=== PATIENT | female | born 1930 | race African-American/Black ===

== ENCOUNTER 2018-06-24 16:33 | Inpatient (IN) | payer MEDICARE, BC ==
[~2018-06-24] VITALS: Ht 152.4 cm; Wt 61.2 kg
[2018-06-24] MEDS ORDERED: LISI-604 MT (17:03)
[2018-06-24] MEDS ORDERED: ASPI-1158 MT (17:03)
[2018-06-24] MEDS ORDERED: FERR325T6 MT (17:03)
[2018-06-24] MEDS ORDERED: MULT-904 PO (17:03)
[2018-06-24] MEDS ORDERED: AMLO5TAB88 PO (17:03)
[2018-06-24 18:24] LABS: BASOPHILS % 0.4 % (0.0-2.0); EOSINOPHILS % 2.1 % (0.0-5.0); HEMATOCRIT. 24.5 % (36.0-48.0); HEMOGLOBIN. 8.1 g/dL (12.0-16.0); MEAN CORPUSCULAR HEMOGLOBIN 27.5 pg (28.0-32.0); MEAN CORPUSCULAR VOLUME 83.7 fL (81.0-99.0); MEAN PLATELET VOLUME 8.9 fl (7.4-10.4); MONOCYTES % 6.3 % (2.0-8.0); NEUTROPHILS % 77.2 % (40.0-76.0); PLATELET 233 x1000/uL (130-400); RED BLOOD CELL COUNT 2.92 mill/uL (4.2-5.4); RED CELL DISTRIBUTION WIDTH 15.7 % (11.6-14.6)
[2018-06-24 18:26] LABS: CHLORIDE 115 mEq/L (98-107)
[2018-06-24] MEDS ORDERED: POTASSIUM CHLORIDE 20MEQ TABLET SR PO NR (20:00)
[2018-06-24] MEDS ORDERED: IPRATROPIUM/ALBUTEROL 0.5-3(2.5)MG/3ML NEB INH PRN (20:00)
[2018-06-24] MEDS ORDERED: ONDANSETRON 4MG ODT PO PRN (20:00)
[2018-06-24] MEDS ORDERED: AMLODIPINE 5MG TABLET PO NR (20:00)
[2018-06-24] MEDS ORDERED: ACETAMINOPHEN 650MG/20.3ML UDC GT PRN (20:00)
[2018-06-24] MEDS ORDERED: SODIUM CHLORIDE 0.45% 1,000 ML IV SCH (22:00)
[2018-06-24 22:10] VITALS: BP 175/70
[2018-06-25] VITALS (7 sets, daily range): BP systolic 123–186; BP diastolic 67–82
[2018-06-25] MEDS ORDERED: MVI, ADULT NO.1 10 ML, FOLIC ACID 1 MG, THIAMINE HCL 100 MG in SODIUM CHLORIDE 0.9% 1,0... IV NR ×4
[2018-06-25] MEDS: CLONIDINE 0.1MG TABLET PO PRN (00:27)
[2018-06-25 06:42] LABS: BASOPHILS % 0.4 % (0.0-2.0); EOSINOPHILS % 2.3 % (0.0-5.0); HEMATOCRIT. 24.2 % (36.0-48.0); HEMOGLOBIN. 7.9 g/dL (12.0-16.0); LYMPHOCYTES % 18.2 % (20.0-50.0); MEAN CORPUSCULAR HEMOGLOBIN 27.3 pg (28.0-32.0); MEAN CORPUSCULAR VOLUME 83.5 fL (81.0-99.0); MEAN PLATELET VOLUME 8.8 fl (7.4-10.4); NEUTROPHILS % 74.1 % (40.0-76.0); PLATELET 215 x1000/uL (130-400); RED CELL DISTRIBUTION WIDTH 15.5 % (11.6-14.6)
[2018-06-25] MEDS: OMEPRAZOLE 20MG CAPSULE EXTENDED RELEASE PO SCH (06:43)
[2018-06-25 06:54] LABS: CHLORIDE 116 mEq/L (98-107)
[2018-06-25 07:00] LABS: PHOSPHORUS 3.4 mg/dL (2.5-4.9)
[2018-06-25 07:01] LABS: LDL CHOLESTEROL 157 mg/dL (5-100)
[2018-06-25 07:02] LABS: HDL CHOLESTEROL 93 mg/dL (40-59); TOTAL IRON BINDING CAPACITY 226 ug/dL (250-450)
[2018-06-25 07:04] LABS: CREATINE KINASE MB FRACTION 0.7 ng/mL (0.5-3.6)
[2018-06-25 07:18] LABS: VITAMIN B12 SERUM 1008 pg/mL (211-911)
[2018-06-25] MEDS ORDERED: SODIUM CHLORIDE 0.45% 1,000 ML IV SCH (08:00)
[2018-06-25] MEDS: ASPIRIN 81MG EC TABLET PO SCH (09:36)
[2018-06-25] MEDS: AMLODIPINE 5MG TABLET PO SCH (09:36)
[2018-06-25] MEDS: POTASSIUM CHLORIDE 20MEQ TABLET SR PO SCH (09:36)
[2018-06-25] MEDS: ENOXAPARIN 30MG/0.3ML SYR SUBCUT SCH (09:36)
[2018-06-25] MEDS: DEXT 5% WATER + KCL 20MEQ/L 1,000 ML IV SCH (12:54)
[2018-06-25] MEDS: FOLIC ACID/VITAMIN B COMP W-C TABLET PO SCH (12:54)
[2018-06-25] MEDS: FERROUS SULFATE 325MG TABLET PO SCH (18:09)
[2018-06-25] MEDS: ATORVASTATIN CALCIUM 10MG TABLET PO SCH (20:52)
[2018-06-25 21:55] LABS: HEMATOCRIT 29.4 % (36.0-48.0); HEMOGLOBIN 9.6 g/dL (12.0-16.0)
[2018-06-26] VITALS (7 sets, daily range): BP systolic 142–198; BP diastolic 68–82
[2018-06-26] MEDS ORDERED: DEXTROSE 50% WATER 50ML SYRINGE IV PRN (01:15)
[2018-06-26 03:10] LABS: CLARITY URINE TURBID (CLEAR); KETONES URINE TRACE (NEGATIVE); LEUKOCYTE ESTERASE URINE 3+ (NEGATIVE); NITRITE URINE NEGATIVE (NEGATIVE); OCCULT BLOOD URINE 3+ (NEGATIVE); PROTEIN URINE 3+ (NEGATIVE); SPECIFIC GRAVITY URINE 1.017 (1.005-1.030); UROBILINOGEN URINE 0.2 E.U./dL (0.2-1.0)
[2018-06-26 03:14] LABS: COLOR URINE BLOODY (YELLOW)
[2018-06-26] MEDS: CLONIDINE 0.1MG TABLET PO PRN (04:39)
[2018-06-26] MEDS: DEXT 5% WATER + KCL 20MEQ/L 1,000 ML IV SCH ×3 (04:39→18:00)
[2018-06-26] MEDS: BLOOD SUGAR DIAGNOSTIC STRIP TEST SCH ×4 (06:08→21:03)
[2018-06-26] MEDS: OMEPRAZOLE 20MG CAPSULE EXTENDED RELEASE PO SCH (06:08)
[2018-06-26 06:20] LABS: BASOPHILS % 0.6 % (0.0-2.0); EOSINOPHILS % 2.6 % (0.0-5.0); HEMOGLOBIN. 8.9 g/dL (12.0-16.0); LYMPHOCYTES % 16.6 % (20.0-50.0); MEAN CORPUSCULAR HEMOGLOBIN 27.4 pg (28.0-32.0); MEAN CORPUSCULAR VOLUME 83.4 fL (81.0-99.0); MEAN PLATELET VOLUME 9.1 fl (7.4-10.4); NEUTROPHILS % 74.2 % (40.0-76.0); PLATELET 225 x1000/uL (130-400); RED BLOOD CELL COUNT 3.23 mill/uL (4.2-5.4); RED CELL DISTRIBUTION WIDTH 15.3 % (11.6-14.6)
[2018-06-26 06:57] LABS: FOLIC ACID (FOLATE) SERUM > 20.00 ng/mL (>5.38)
[2018-06-26 07:01] LABS: HEPATITIS B SURFACE ANTIGEN NEGATIVE
[2018-06-26 07:05] LABS: FERRITIN 340 ng/mL (10-291)
[2018-06-26] MEDS: INSULIN LISPRO 100 UNITS/ML SUBCUT SCH ×4 (07:50→21:00)
[2018-06-26] MEDS: AMLODIPINE 5MG TABLET PO SCH (08:02)
[2018-06-26] MEDS: FOLIC ACID/VITAMIN B COMP W-C TABLET PO SCH (08:02)
[2018-06-26] MEDS: ASPIRIN 81MG EC TABLET PO SCH (08:03)
[2018-06-26] MEDS: FERROUS SULFATE 325MG TABLET PO SCH ×2 (08:03→18:28)
[2018-06-26] MEDS: DOCUSATE SODIUM 250MG CAPSULE PO SCH (08:03)
[2018-06-26] MEDS: POTASSIUM CHLORIDE 20MEQ TABLET SR PO SCH (08:03)
[2018-06-26] MEDS: HYDRALAZINE HCL 50MG TABLET PO SCH ×3 (08:03→21:04)
[2018-06-26] MEDS: ENOXAPARIN 30MG/0.3ML SYR SUBCUT SCH (08:05)
[2018-06-26] MEDS: NYSTATIN POWDER 15GM TOP SCH (18:58)
[2018-06-26] MEDS: ATORVASTATIN CALCIUM 10MG TABLET PO SCH (21:04)
[2018-06-27] VITALS (8 sets, daily range): BP systolic 104–199; BP diastolic 43–81
[2018-06-27] MEDS: CLONIDINE 0.1MG TABLET PO PRN (01:30)
[2018-06-27] MEDS: DEXT 5% WATER + KCL 20MEQ/L 1,000 ML IV SCH ×3 (04:07→23:02)
[2018-06-27] MEDS: HYDRALAZINE HCL 50MG TABLET PO SCH ×2 (05:36→15:04)
[2018-06-27] MEDS: BLOOD SUGAR DIAGNOSTIC STRIP TEST SCH ×4 (06:11→21:00)
[2018-06-27] MEDS: OMEPRAZOLE 20MG CAPSULE EXTENDED RELEASE PO SCH (06:19)
[2018-06-27 06:58] LABS: BASOPHILS % 0.7 % (0.0-2.0); EOSINOPHILS % 3.5 % (0.0-5.0); HEMATOCRIT. 26.2 % (36.0-48.0); HEMOGLOBIN. 8.6 g/dL (12.0-16.0); LYMPHOCYTES % 17.3 % (20.0-50.0); MEAN CORPUSCULAR HEMOGLOBIN 27.1 pg (28.0-32.0); MEAN CORPUSCULAR VOLUME 82.3 fL (81.0-99.0); MEAN PLATELET VOLUME 8.8 fl (7.4-10.4); MONOCYTES % 5.3 % (2.0-8.0); NEUTROPHILS % 73.2 % (40.0-76.0); PLATELET 238 x1000/uL (130-400); RED BLOOD CELL COUNT 3.18 mill/uL (4.2-5.4); RED CELL DISTRIBUTION WIDTH 15.4 % (11.6-14.6)
[2018-06-27] MEDS: INSULIN LISPRO 100 UNITS/ML SUBCUT SCH ×4 (07:50→21:00)
[2018-06-27 07:52] LABS: PHOSPHORUS 3.2 mg/dL (2.5-4.9)
[2018-06-27] MEDS: POTASSIUM CHLORIDE 20MEQ TABLET SR PO SCH (09:17)
[2018-06-27] MEDS: FOLIC ACID/VITAMIN B COMP W-C TABLET PO SCH (09:17)
[2018-06-27] MEDS: ASPIRIN 81MG EC TABLET PO SCH (09:17)
[2018-06-27] MEDS: FERROUS SULFATE 325MG TABLET PO SCH ×2 (09:17→17:35)
[2018-06-27] MEDS: ENOXAPARIN 30MG/0.3ML SYR SUBCUT SCH (09:18)
[2018-06-27] MEDS: AMLODIPINE 5MG TABLET PO SCH ×2 (09:18→21:00)
[2018-06-27] MEDS: DOCUSATE SODIUM 250MG CAPSULE PO SCH (09:18)
[2018-06-27] MEDS: NYSTATIN POWDER 15GM TOP SCH ×2 (09:19→17:35)
[2018-06-27] MEDS ORDERED: CLONIDINE 0.2MG TABLET PO PRN ×2 (17:00)
[2018-06-27] MEDS: HYDRALAZINE HCL 100MG TABLET PO SCH (21:13)
[2018-06-27] MEDS: ATORVASTATIN CALCIUM 10MG TABLET PO SCH (21:37)
[2018-06-28 00:02] VITALS: BP 129/57
[2018-06-28 04:00] VITALS: BP 136/60
[2018-06-28] MEDS: OMEPRAZOLE 20MG CAPSULE EXTENDED RELEASE PO SCH (05:30)
[2018-06-28] MEDS: HYDRALAZINE HCL 100MG TABLET PO SCH ×3 (05:30→22:20)
[2018-06-28] MEDS: BLOOD SUGAR DIAGNOSTIC STRIP TEST SCH ×4 (07:20→21:30)
[2018-06-28] MEDS: INSULIN LISPRO 100 UNITS/ML SUBCUT SCH ×4 (07:50→21:35)
[2018-06-28 08:00] VITALS: BP 111/55
[2018-06-28] MEDS: AMLODIPINE 5MG TABLET PO SCH ×2 (09:00→22:19)
[2018-06-28] MEDS: DOCUSATE SODIUM 250MG CAPSULE PO SCH (09:05)
[2018-06-28] MEDS: FERROUS SULFATE 325MG TABLET PO SCH ×2 (09:05→17:18)
[2018-06-28] MEDS: NYSTATIN POWDER 15GM TOP SCH ×2 (09:05→17:19)
[2018-06-28] MEDS: POTASSIUM CHLORIDE 20MEQ TABLET SR PO SCH (09:05)
[2018-06-28] MEDS: FOLIC ACID/VITAMIN B COMP W-C TABLET PO SCH (09:05)
[2018-06-28] MEDS: ASPIRIN 81MG EC TABLET PO SCH (09:05)
[2018-06-28] MEDS: ENOXAPARIN 30MG/0.3ML SYR SUBCUT SCH (09:07)
[2018-06-28 09:29] LABS: BASOPHILS % 0.6 % (0.0-2.0); EOSINOPHILS % 1.9 % (0.0-5.0); HEMATOCRIT. 26.3 % (36.0-48.0); HEMOGLOBIN. 8.9 g/dL (12.0-16.0); LYMPHOCYTES % 10.8 % (20.0-50.0); MEAN CORPUSCULAR HEMOGLOBIN 27.5 pg (28.0-32.0); MEAN CORPUSCULAR VOLUME 81.6 fL (81.0-99.0); MEAN PLATELET VOLUME 9.3 fl (7.4-10.4); MONOCYTES % 7.2 % (2.0-8.0); NEUTROPHILS % 79.5 % (40.0-76.0); PLATELET 270 x1000/uL (130-400); RED BLOOD CELL COUNT 3.22 mill/uL (4.2-5.4); RED CELL DISTRIBUTION WIDTH 15.3 % (11.6-14.6)
[2018-06-28 09:32] LABS: CHLORIDE 106 mEq/L (98-107)
[2018-06-28 09:43] LABS: CREATINE KINASE 67 IU/L (26-192)
[2018-06-28 09:47] LABS: CREATINE KINASE MB FRACTION 1.2 ng/mL (0.5-3.6)
[2018-06-28] MEDS: DEXT 5% WATER + KCL 20MEQ/L 1,000 ML IV SCH (10:03)
[2018-06-28] MEDS ORDERED: DEXT 5%/0.45% NACL KCL 10MEQ/L 1,000 ML IV SCH (11:00)
[2018-06-28] MEDS: DEXT 5%/0.45% NACL 1000ML 1,000 ML IV SCH (11:16)
[2018-06-28 12:00] VITALS: BP 154/69
[2018-06-28 16:00] VITALS: BP 122/57
[2018-06-28 19:06] LABS: ANTI-NUCLEAR ANTIBODIES DIRECT Negative (Negative)
[2018-06-28 20:00] VITALS: BP 153/66
[2018-06-28] MEDS: ATORVASTATIN CALCIUM 10MG TABLET PO SCH (22:18)
[2018-06-28] MEDS: METOPROLOL TARTRATE 25MG TABLET PO SCH (22:19)
[2018-06-29] VITALS: BP 129/54
[2018-06-29] MEDS: DEXT 5%/0.45% NACL 1000ML 1,000 ML IV SCH ×2 (00:25→13:40)
[2018-06-29 04:00] VITALS: BP 138/68
[2018-06-29] MEDS: HYDRALAZINE HCL 100MG TABLET PO SCH ×4 (06:21→21:43)
[2018-06-29 07:24] LABS: BASOPHILS % 0.6 % (0.0-2.0); EOSINOPHILS % 2.4 % (0.0-5.0); HEMATOCRIT. 24.4 % (36.0-48.0); HEMOGLOBIN. 8.1 g/dL (12.0-16.0); MEAN CORPUSCULAR HEMOGLOBIN 27.4 pg (28.0-32.0); MEAN CORPUSCULAR VOLUME 82.5 fL (81.0-99.0); MEAN PLATELET VOLUME 9.3 fl (7.4-10.4); PLATELET 255 x1000/uL (130-400); RED BLOOD CELL COUNT 2.95 mill/uL (4.2-5.4); RED CELL DISTRIBUTION WIDTH 15.5 % (11.6-14.6)
[2018-06-29 07:30] LABS: PARTIAL THROMBOPLASTIN TIME 23.1 sec (23.4-31.0); PROTHROMBIN TIME 10.2 sec (9.4-11.6)
[2018-06-29] MEDS: BLOOD SUGAR DIAGNOSTIC STRIP TEST SCH ×4 (07:40→21:44)
[2018-06-29] MEDS: INSULIN LISPRO 100 UNITS/ML SUBCUT SCH ×4 (07:50→21:00)
[2018-06-29] MEDS: FERROUS SULFATE 325MG TABLET PO SCH ×2 (08:50→17:50)
[2018-06-29] MEDS: DOCUSATE SODIUM 250MG CAPSULE PO SCH (08:51)
[2018-06-29] MEDS: ASPIRIN 81MG EC TABLET PO SCH (08:51)
[2018-06-29] MEDS: PANTOPRAZOLE SODIUM 40 MG/VIAL IV SCH (08:51)
[2018-06-29] MEDS: FOLIC ACID/VITAMIN B COMP W-C TABLET PO SCH (08:51)
[2018-06-29] MEDS: AMLODIPINE 5MG TABLET PO SCH ×3 (08:51→21:43)
[2018-06-29] MEDS: METOPROLOL TARTRATE 25MG TABLET PO SCH ×3 (08:51→21:44)
[2018-06-29] MEDS: ENOXAPARIN 30MG/0.3ML SYR SUBCUT SCH (08:52)
[2018-06-29] MEDS ORDERED: FAMOTIDINE 20MG TABLET PO SCH (09:00)
[2018-06-29 09:12] VITALS: BP 180/74
[2018-06-29] MEDS ORDERED: LABETALOL 5MG/ML SYR 20 MG/4 ML SYRINGE IV SCH (11:00)
[2018-06-29 12:51] VITALS: BP 169/65
[2018-06-29] MEDS ORDERED: SODIUM CHLORIDE 0.9% 10ML VIAL ONE (13:40)
[2018-06-29] MEDS ORDERED: HYDRALAZINE 20MG/ML VIAL IV PRN (14:45)
[2018-06-29] MEDS: NYSTATIN POWDER 15GM TOP SCH (15:33)
[2018-06-29] MEDS ORDERED: METOCLOPRAMIDE HCL 10MG/2ML VIAL IV NR (16:30)
[2018-06-29 16:48] VITALS: BP 146/63
[2018-06-29] MEDS ORDERED: FENTANYL CITRATE/PF 50MCG/ML 2ML VIAL ONE (19:13)
[2018-06-29] MEDS ORDERED: MIDAZOLAM HCL 5 MG/5 ML VIAL ONE (19:13)
[2018-06-29] MEDS ORDERED: FENTANYL CITRATE/PF 50MCG/ML 2ML VIAL IV ONE (19:24)
[2018-06-29] MEDS ORDERED: MIDAZOLAM HCL 5 MG/5 ML VIAL IV ONE (19:25)
[2018-06-29 21:00] VITALS: BP 140/70
[2018-06-29] MEDS: ATORVASTATIN CALCIUM 10MG TABLET PO SCH (21:43)
[2018-06-30] VITALS (11 sets, daily range): BP systolic 126–145; BP diastolic 52–74
[2018-06-30] MEDS: HYDRALAZINE HCL 100MG TABLET PO SCH ×2 (05:47→14:33)
[2018-06-30] MEDS: BLOOD SUGAR DIAGNOSTIC STRIP TEST SCH ×3 (06:40→17:39)
[2018-06-30 07:24] LABS: BASOPHILS % 0.5 % (0.0-2.0); EOSINOPHILS % 1.8 % (0.0-5.0); HEMATOCRIT. 21.4 % (36.0-48.0); HEMOGLOBIN. 7.1 g/dL (12.0-16.0); LYMPHOCYTES % 11.5 % (20.0-50.0); MEAN CORPUSCULAR HEMOGLOBIN 27.6 pg (28.0-32.0); MEAN CORPUSCULAR VOLUME 83.2 fL (81.0-99.0); MEAN PLATELET VOLUME 9.3 fl (7.4-10.4); MONOCYTES % 7.2 % (2.0-8.0); PLATELET 225 x1000/uL (130-400); RED BLOOD CELL COUNT 2.57 mill/uL (4.2-5.4); RED CELL DISTRIBUTION WIDTH 15.5 % (11.6-14.6)
[2018-06-30] MEDS: INSULIN LISPRO 100 UNITS/ML SUBCUT SCH ×3 (07:50→17:40)
[2018-06-30] MEDS: FOLIC ACID/VITAMIN B COMP W-C TABLET PO SCH (08:09)
[2018-06-30] MEDS: ASPIRIN 81MG EC TABLET PO SCH (08:10)
[2018-06-30] MEDS: ENOXAPARIN 30MG/0.3ML SYR SUBCUT SCH (08:10)
[2018-06-30] MEDS: AMLODIPINE 5MG TABLET PO SCH (08:10)
[2018-06-30] MEDS: DOCUSATE SODIUM 250MG CAPSULE PO SCH (08:10)
[2018-06-30] MEDS: FERROUS SULFATE 325MG TABLET PO SCH (08:10)
[2018-06-30] MEDS: PANTOPRAZOLE SODIUM 40 MG/VIAL IV SCH (08:10)
[2018-06-30] MEDS: METOPROLOL TARTRATE 25MG TABLET PO SCH (09:00)
[2018-06-30] MEDS: NYSTATIN POWDER 15GM TOP SCH (09:00)
[2018-06-30] MEDS ORDERED: LEVOFLOXACIN 250MG TABLET PO SCH (11:00)
[2018-06-30 13:06] LABS: ACTIN (SMOOTH MUSCLE) ANTIBODY 27 Units (0-19); MITOCHONDRIAL M2 AB 13.7 Units (0.0-20.0)
[2018-06-30 13:34] LABS: HEMATOCRIT 22.5 % (36.0-48.0); HEMOGLOBIN 7.4 g/dL (12.0-16.0)
[2018-07-01] MEDS ORDERED: OMEPRAZOLE 20MG CAPSULE EXTENDED RELEASE PO SCH (07:20)
== END 2018-06-30 19:45 | DRG 64 ==
LOC: ER 16:56 → 6WST 19:12 → EDBEDREQ 19:25 → ENRESERV 20:20
PROVIDERS: ADMIT Internal Medicine Geriatric Medicine; ATTEND Internal Medicine Geriatric Medicine
PROC: 0DB78ZX Excision of Stomach, Pylorus, Via Natural or Artificial Opening Endoscopic, Diagnostic (ICD-10-PCS; principal; 2018-06-29 14:00)
PROC: 30233N1 Transfusion of Nonautologous Red Blood Cells into Peripheral Vein, Percutaneous Approach (ICD-10-PCS; 2018-06-30)
DX: I63.9 Cerebral infarction, unspecified (principal); E43 Unspecified severe protein-calorie malnutrition; G92 Toxic encephalopathy; I21.4 Non-ST elevation (NSTEMI) myocardial infarction; E87.0 Hyperosmolality and hypernatremia; N17.9 Acute kidney failure, unspecified; I47.1 Supraventricular tachycardia; N39.0 Urinary tract infection, site not specified; R18.8 Other ascites; I69.351 Hemiplegia and hemiparesis following cerebral infarction affecting right dominant side; I13.10 Hypertensive heart and chronic kidney disease without heart failure, with stage 1 through stage 4 chronic kidney disease, or unspecified chronic kidney disease; E87.6 Hypokalemia; E86.0 Dehydration; R62.7 Adult failure to thrive; D63.8 Anemia in other chronic diseases classified elsewhere; E88.09 Other disorders of plasma-protein metabolism, not elsewhere classified; N18.9 Chronic kidney disease, unspecified; B96.89 Other specified bacterial agents as the cause of diseases classified elsewhere; E88.89 Other specified metabolic disorders; K74.60 Unspecified cirrhosis of liver; L89.159 Pressure ulcer of sacral region, unspecified stage; E11.22 Type 2 diabetes mellitus with diabetic chronic kidney disease; E83.51 Hypocalcemia; R47.01 Aphasia; K29.60 Other gastritis without bleeding; K59.00 Constipation, unspecified; E78.00 Pure hypercholesterolemia, unspecified; D50.9 Iron deficiency anemia, unspecified; F03.90 Unspecified dementia, unspecified severity, without behavioral disturbance, psychotic disturbance, mood disturbance, and anxiety; I08.0 Rheumatic disorders of both mitral and aortic valves; I69.322 Dysarthria following cerebral infarction; Z74.01 Bed confinement status; Z68.26 Body mass index [BMI] 26.0-26.9, adult; Z79.82 Long term (current) use of aspirin; Z79.899 Other long term (current) drug therapy
CPT/HCPCS: 36415; 70551; 71045; 76700; 80048; 80053; 80061; 80076; 81003; 82105; 82270; 82390; 82550; 82553; 82607; 82728; 82746; 82962; 83036; 83516; 83540; 83550; 83735; 84100; 84443; 84484; 85014; 85018; 85025; 85379; 85610; 85730; 86038; 86803; 86850; 86900; 86920; 87077; 87086; 87186; 87340; 88305; 88312; 88313; 92610; 93005; 93306; 93970; 97162; 99285; A4216; A6261; C9113; J1650; J1815; J2250; J2765; J3010; J3411; J3490; J7030; J7050; J7060; P9016

== ENCOUNTER 2018-08-23 10:27 | Emergency (ER) | payer MEDICARE, BC ==
[~2018-08-23] VITALS: Ht 149.9 cm; Wt 48.0 kg
[~2018-08-23 10:27] MED LIST: AMLO5TAB88 PO; ASPI-1158 MT; FERR325T6 MT; LISI-604 MT; MULT-904 PO
[2018-08-23] MEDS ORDERED: FAMOTIDINE 20MG/2ML VIAL IV ONE (12:15)
[2018-08-23] MEDS ORDERED: DIPHENHYDRAMINE 50MG/ML VIAL IV ONE (12:15)
[2018-08-23] MEDS ORDERED: METHYLPREDNISOLONE SOD SUCC 125 MG/2 ML VIAL IV ONE (12:15)
[2018-08-23 12:26] LABS: BASOPHILS % 0.3 % (0.0-2.0); EOSINOPHILS % 0.9 % (0.0-5.0); HEMATOCRIT. 27.2 % (36.0-48.0); HEMOGLOBIN. 9.1 g/dL (12.0-16.0); MEAN CORPUSCULAR HEMOGLOBIN 27.1 pg (28.0-32.0); MEAN CORPUSCULAR VOLUME 81.2 fL (81.0-99.0); MONOCYTES % 2.7 % (2.0-8.0); NEUTROPHILS % 88.1 % (40.0-76.0); PLATELET 312 x1000/uL (130-400); RED BLOOD CELL COUNT 3.35 mill/uL (4.2-5.4); RED CELL DISTRIBUTION WIDTH 14.2 % (11.6-14.6)
[2018-08-23 12:31] LABS: CHLORIDE 113 mEq/L (98-107)
[2018-08-23] MEDS ORDERED: KCL 20MEQ/100ML PREMIX 100 ML IV ONE (13:15)
[2018-08-23] MEDS ORDERED: POTASSIUM CHLORIDE 20MEQ/PACKET PO ONE (13:15)
[2018-08-23 13:26] LABS: PROTHROMBIN TIME 10.4 sec (9.1-11.1)
[2018-08-23 16:59] VITALS: BP 178/80
== END 2018-08-23 17:03 | disposition home or self-care (01) ==
LOC: ER 12:10
DX: R22.0 Localized swelling, mass and lump, head (principal); E87.6 Hypokalemia; D64.9 Anemia, unspecified; E86.0 Dehydration; E88.09 Other disorders of plasma-protein metabolism, not elsewhere classified; F03.90 Unspecified dementia, unspecified severity, without behavioral disturbance, psychotic disturbance, mood disturbance, and anxiety; G81.91 Hemiplegia, unspecified affecting right dominant side; I10 Essential (primary) hypertension; Z79.899 Other long term (current) drug therapy
CPT/HCPCS: 36415; 71045; 80053; 85025; 85610; 96365; 96366; 96375; 99285; J1200; J2930; J3480; J3490

== ENCOUNTER 2018-10-12 09:56 | Inpatient (IN) | payer MEDICARE, BC ==
[~2018-10-12] VITALS: Ht 154.9 cm; Wt 49.9 kg
[2018-10-12 12:25] LABS: BASOPHILS % 0.8 % (0.0-2.0); EOSINOPHILS % 0.9 % (0.0-5.0); HEMATOCRIT. 30.9 % (36.0-48.0); MEAN CORPUSCULAR HEMOGLOBIN 26.6 pg (28.0-32.0); MEAN CORPUSCULAR VOLUME 82.3 fL (81.0-99.0); MEAN PLATELET VOLUME 7.9 fl (7.4-10.4); MONOCYTES % 4.8 % (2.0-8.0); NEUTROPHILS % 74.5 % (40.0-76.0); PLATELET 341 x1000/uL (130-400); RED BLOOD CELL COUNT 3.75 mill/uL (4.2-5.4); RED CELL DISTRIBUTION WIDTH 17.4 % (11.6-14.6)
[2018-10-12] MEDS ORDERED: ENOXAPARIN 40MG/0.4ML SYR SUBCUT ONE (12:30)
[2018-10-12 12:32] LABS: PROTHROMBIN TIME 10.4 sec (9.1-11.1)
[2018-10-12 12:33] LABS: CHLORIDE 113 mEq/L (98-107)
[2018-10-12] MEDS ORDERED: ACETAMINOPHEN 325MG TABLET PO PRN (14:00)
[2018-10-12] MEDS ORDERED: GUAIFENESIN 200MG/10ML SUGAR FREE UDC PO PRN (14:00)
[2018-10-12] MEDS ORDERED: DIPHENHYDRAMINE 50MG/ML VIAL IV PRN (14:00)
[2018-10-12] MEDS ORDERED: LORAZEPAM 2MG/ML CPJ IV PRN (14:00)
[2018-10-12] MEDS ORDERED: DOCUSATE SODIUM 100MG CAPSULE PO PRN (14:00)
[2018-10-12] MEDS ORDERED: ONDANSETRON HCL 4MG/2ML INJ IV PRN (14:00)
[2018-10-12] MEDS ORDERED: MAGNESIUM/ALUMINUM HYDROXIDE/SIMETHICONE 30ML UDC PO PRN (14:00)
[2018-10-12] MEDS: LISINOPRIL 20MG TABLET PO SCH (15:27)
[2018-10-12] MEDS ORDERED: AMLODIPINE 5MG TABLET PO NR (16:15)
[2018-10-12] MEDS ORDERED: SODIUM CHLORIDE 0.9% 500 ML IV NR (22:00)
[2018-10-12] MEDS: FERROUS SULFATE 300MG/5ML UDC PO SCH (22:18)
[2018-10-12] MEDS: CLONIDINE 0.1MG TABLET PO PRN (23:23)
[2018-10-13] VITALS (7 sets, daily range): BP systolic 137–198; BP diastolic 48–83
[2018-10-13] MEDS: ENOXAPARIN 40MG/0.4ML SYR SUBCUT SCH ×2 (02:37→22:16)
[2018-10-13] MEDS: AMLODIPINE 5MG TABLET PO SCH ×3 (02:37→22:18)
[2018-10-13] MEDS: CLONIDINE 0.1MG TABLET PO PRN (05:19)
[2018-10-13] MEDS ORDERED: DEXT 5%/0.45% NACL 1000ML 1,000 ML IV SCH (06:30)
[2018-10-13] MEDS ORDERED: HYDRALAZINE HCL 50MG TABLET PO SCH (07:00)
[2018-10-13] MEDS ORDERED: LISINOPRIL 20MG TABLET PO SCH (07:15)
[2018-10-13] MEDS: FERROUS SULFATE 300MG/5ML UDC PO SCH ×3 (09:23→18:15)
[2018-10-13] MEDS: LISINOPRIL 20MG TABLET PO SCH ×2 (09:23→22:17)
[2018-10-13] MEDS: DEXT 5%/0.45% NACL 1000ML 1,000 ML IV SCH (09:30)
[2018-10-13 10:17] LABS: BASOPHILS % 0.8 % (0.0-2.0); EOSINOPHILS % 0.5 % (0.0-5.0); HEMATOCRIT. 29.9 % (36.0-48.0); HEMOGLOBIN. 9.5 g/dL (12.0-16.0); LYMPHOCYTES % 22.1 % (20.0-50.0); MEAN CORPUSCULAR HEMOGLOBIN 26.9 pg (28.0-32.0); MEAN CORPUSCULAR VOLUME 84.7 fL (81.0-99.0); MEAN PLATELET VOLUME 8.1 fl (7.4-10.4); MONOCYTES % 5.4 % (2.0-8.0); NEUTROPHILS % 71.2 % (40.0-76.0); PLATELET 285 x1000/uL (130-400); RED BLOOD CELL COUNT 3.52 mill/uL (4.2-5.4); RED CELL DISTRIBUTION WIDTH 17.5 % (11.6-14.6)
[2018-10-13 10:22] LABS: CHLORIDE 114 mEq/L (98-107)
[2018-10-13] MEDS: IPRATROPIUM/ALBUTEROL 0.5-3(2.5)MG/3ML NEB HHN SCH ×2 (16:14→20:54)
[2018-10-13] MEDS: HYDRALAZINE HCL 50MG TABLET PO SCH (22:18)
[2018-10-14] VITALS: BP 162/62
[2018-10-14] MEDS: DEXT 5%/0.45% NACL 1000ML 1,000 ML IV SCH (00:10)
[2018-10-14] MEDS: IPRATROPIUM/ALBUTEROL 0.5-3(2.5)MG/3ML NEB HHN SCH ×7 (00:15→19:56)
[2018-10-14 04:00] VITALS: BP_SYST 158; BP_SYST 160; BP_DIAS 93
[2018-10-14] MEDS: HYDRALAZINE HCL 50MG TABLET PO SCH ×3 (07:09→22:54)
[2018-10-14 08:26] VITALS: BP 129/70
[2018-10-14] MEDS: FERROUS SULFATE 300MG/5ML UDC PO SCH ×3 (09:51→18:08)
[2018-10-14] MEDS: LISINOPRIL 20MG TABLET PO SCH ×2 (09:52→22:55)
[2018-10-14] MEDS: POTASSIUM CHLORIDE 10MEQ TABLET SR PO SCH (09:52)
[2018-10-14] MEDS: AMLODIPINE 5MG TABLET PO SCH ×2 (09:52→22:55)
[2018-10-14] MEDS: FUROSEMIDE 40MG/4ML VIAL IVP SCH (09:53)
[2018-10-14 12:43] VITALS: BP 123/84
[2018-10-14 16:00] VITALS: BP 135/50
[2018-10-14 20:00] VITALS: BP 143/62
[2018-10-14] MEDS: ENOXAPARIN 40MG/0.4ML SYR SUBCUT SCH (22:55)
[2018-10-15] VITALS: BP 148/76
[2018-10-15] MEDS: IPRATROPIUM/ALBUTEROL 0.5-3(2.5)MG/3ML NEB HHN SCH ×6 (00:10→20:51)
[2018-10-15 01:08] LABS: BASOPHILS % 0.5 % (0.0-2.0); EOSINOPHILS % 0.8 % (0.0-5.0); HEMATOCRIT. 23.9 % (36.0-48.0); HEMOGLOBIN. 7.9 g/dL (12.0-16.0); LYMPHOCYTES % 17.9 % (20.0-50.0); MEAN CORPUSCULAR HEMOGLOBIN 27.3 pg (28.0-32.0); MEAN CORPUSCULAR VOLUME 83.1 fL (81.0-99.0); MEAN PLATELET VOLUME 8.4 fl (7.4-10.4); MONOCYTES % 6.6 % (2.0-8.0); NEUTROPHILS % 74.2 % (40.0-76.0); PLATELET 256 x1000/uL (130-400); RED BLOOD CELL COUNT 2.87 mill/uL (4.2-5.4); RED CELL DISTRIBUTION WIDTH 17.5 % (11.6-14.6)
[2018-10-15 01:19] LABS: CHLORIDE 110 mEq/L (98-107)
[2018-10-15 01:32] LABS: HAPTOGLOBIN <31.0 mg/dL (30-200)
[2018-10-15 04:00] VITALS: BP 136/58
[2018-10-15] MEDS: HYDRALAZINE HCL 50MG TABLET PO SCH ×3 (06:35→22:31)
[2018-10-15 08:00] VITALS: BP 125/62
[2018-10-15] MEDS: FUROSEMIDE 40MG/4ML VIAL IVP SCH (09:00)
[2018-10-15] MEDS: POTASSIUM CHLORIDE 10MEQ TABLET SR PO SCH (09:53)
[2018-10-15] MEDS: AMLODIPINE 5MG TABLET PO SCH ×2 (09:53→21:02)
[2018-10-15] MEDS: LISINOPRIL 20MG TABLET PO SCH ×2 (09:53→21:02)
[2018-10-15] MEDS: FERROUS SULFATE 300MG/5ML UDC PO SCH ×3 (09:53→17:34)
[2018-10-15 20:00] VITALS: BP 129/61
[2018-10-15] MEDS: ENOXAPARIN 40MG/0.4ML SYR SUBCUT SCH (22:32)
[2018-10-16 00:08] VITALS: BP 126/66
[2018-10-16] MEDS: IPRATROPIUM/ALBUTEROL 0.5-3(2.5)MG/3ML NEB HHN SCH ×6 (00:45→21:37)
[2018-10-16 04:00] VITALS: BP 124/68
[2018-10-16 07:32] LABS: BASOPHILS % 0.5 % (0.0-2.0); EOSINOPHILS % 1.1 % (0.0-5.0); HEMATOCRIT. 21.6 % (36.0-48.0); HEMOGLOBIN. 7.1 g/dL (12.0-16.0); LYMPHOCYTES % 17.4 % (20.0-50.0); MEAN CORPUSCULAR HEMOGLOBIN 27.4 pg (28.0-32.0); MEAN CORPUSCULAR VOLUME 83.5 fL (81.0-99.0); MEAN PLATELET VOLUME 8.5 fl (7.4-10.4); MONOCYTES % 7.6 % (2.0-8.0); NEUTROPHILS % 73.4 % (40.0-76.0); PLATELET 259 x1000/uL (130-400); RED BLOOD CELL COUNT 2.58 mill/uL (4.2-5.4); RED CELL DISTRIBUTION WIDTH 17.4 % (11.6-14.6)
[2018-10-16 07:50] LABS: CHLORIDE 111 mEq/L (98-107)
[2018-10-16 08:00] VITALS: BP 128/47
[2018-10-16] MEDS: FUROSEMIDE 40MG/4ML VIAL IVP SCH (08:47)
[2018-10-16] MEDS: AMLODIPINE 5MG TABLET PO SCH ×2 (08:47→21:03)
[2018-10-16] MEDS: LISINOPRIL 20MG TABLET PO SCH ×2 (08:47→21:03)
[2018-10-16] MEDS: POTASSIUM CHLORIDE 10MEQ TABLET SR PO SCH (08:47)
[2018-10-16] MEDS: FERROUS SULFATE 300MG/5ML UDC PO SCH ×3 (08:48→18:16)
[2018-10-16 09:08] LABS: IMMUNOGLOBULIN A 236 mg/dL (64-422); IMMUNOGLOBULIN G 1398 mg/dL (700-1600); IMMUNOGLOBULIN M 92 mg/dL (26-217)
[2018-10-16 09:45] LABS: TOTAL IRON BINDING CAPACITY 231 ug/dL (250-450)
[2018-10-16 12:00] VITALS: BP 118/50
[2018-10-16] MEDS: DOCUSATE SODIUM 100MG CAPSULE PO SCH ×2 (12:41→17:00)
[2018-10-16] MEDS: OMEPRAZOLE 20MG CAPSULE EXTENDED RELEASE PO SCH ×2 (12:41→21:04)
[2018-10-16] MEDS: HYDRALAZINE HCL 50MG TABLET PO SCH ×2 (14:00→21:56)
[2018-10-16 20:00] VITALS: BP 179/65
[2018-10-16] MEDS ORDERED: ENOXAPARIN 30MG/0.3ML SYR SUBCUT SCH (21:00)
[2018-10-17] VITALS: BP 131/70
[2018-10-17] MEDS: IPRATROPIUM/ALBUTEROL 0.5-3(2.5)MG/3ML NEB HHN SCH ×6 (01:30→20:37)
[2018-10-17 04:23] VITALS: BP 147/66
[2018-10-17] MEDS: HYDRALAZINE HCL 50MG TABLET PO SCH ×3 (05:39→22:04)
[2018-10-17 07:32] LABS: BASOPHILS % 0.5 % (0.0-2.0); EOSINOPHILS % 1.7 % (0.0-5.0); HEMATOCRIT. 23.3 % (36.0-48.0); HEMOGLOBIN. 7.5 g/dL (12.0-16.0); LYMPHOCYTES % 16.8 % (20.0-50.0); MEAN CORPUSCULAR HEMOGLOBIN 27.2 pg (28.0-32.0); MEAN CORPUSCULAR VOLUME 84.2 fL (81.0-99.0); MEAN PLATELET VOLUME 8.4 fl (7.4-10.4); MONOCYTES % 6.2 % (2.0-8.0); NEUTROPHILS % 74.8 % (40.0-76.0); PLATELET 272 x1000/uL (130-400); RED BLOOD CELL COUNT 2.77 mill/uL (4.2-5.4); RED CELL DISTRIBUTION WIDTH 17.2 % (11.6-14.6)
[2018-10-17 08:00] VITALS: BP 136/60
[2018-10-17 08:00] LABS: CHLORIDE 111 mEq/L (98-107)
[2018-10-17] MEDS ORDERED: LACTULOSE 20G/30ML UDC PO SCH (08:15)
[2018-10-17] MEDS: LISINOPRIL 20MG TABLET PO SCH ×2 (09:57→22:05)
[2018-10-17] MEDS: FUROSEMIDE 40MG TABLET PO SCH (09:57)
[2018-10-17] MEDS: POTASSIUM CHLORIDE 10MEQ TABLET SR PO SCH (09:57)
[2018-10-17] MEDS: OMEPRAZOLE 20MG CAPSULE EXTENDED RELEASE PO SCH ×2 (09:57→22:04)
[2018-10-17] MEDS: DOCUSATE SODIUM 100MG CAPSULE PO SCH ×2 (09:57→18:41)
[2018-10-17] MEDS: AMLODIPINE 5MG TABLET PO SCH ×2 (09:58→22:04)
[2018-10-17] MEDS: FERROUS SULFATE 300MG/5ML UDC PO SCH ×3 (10:06→18:41)
[2018-10-17 12:00] VITALS: BP 121/53
[2018-10-17 16:00] VITALS: BP 134/57
[2018-10-17 20:00] VITALS: BP 130/62
[2018-10-17] MEDS ORDERED: EPOETIN ALFA 10000UNITS/ML VIAL SUBCUT SCH ×2 (21:00)
[2018-10-17] MEDS: HEMORRHOIDAL SUPP PR SCH (22:05)
[2018-10-18] VITALS: BP 139/61
[2018-10-18] MEDS: IPRATROPIUM/ALBUTEROL 0.5-3(2.5)MG/3ML NEB HHN SCH ×3 (01:29→08:11)
[2018-10-18] MEDS: HYDRALAZINE HCL 50MG TABLET PO SCH (04:36)
[2018-10-18 06:49] LABS: BASOPHILS % 0.4 % (0.0-2.0); CHLORIDE 110 mEq/L (98-107); EOSINOPHILS % 1.1 % (0.0-5.0); LYMPHOCYTES % 15.6 % (20.0-50.0); MEAN CORPUSCULAR HEMOGLOBIN 26.8 pg (28.0-32.0); MEAN CORPUSCULAR VOLUME 83.5 fL (81.0-99.0); MEAN PLATELET VOLUME 8.7 fl (7.4-10.4); MONOCYTES % 6.4 % (2.0-8.0); NEUTROPHILS % 76.5 % (40.0-76.0); PLATELET 267 x1000/uL (130-400); RED BLOOD CELL COUNT 2.49 mill/uL (4.2-5.4); RED CELL DISTRIBUTION WIDTH 17.1 % (11.6-14.6)
[2018-10-18 08:00] VITALS: BP 109/47
[2018-10-18 08:03] LABS: HEMATOCRIT. 20.8 % (36.0-48.0); HEMOGLOBIN. 6.7 g/dL (12.0-16.0)
[2018-10-18] MEDS: HEMORRHOIDAL SUPP PR SCH (10:00)
[2018-10-18] MEDS: OMEPRAZOLE 20MG CAPSULE EXTENDED RELEASE PO SCH (10:08)
[2018-10-18] MEDS: DOCUSATE SODIUM 100MG CAPSULE PO SCH (10:08)
[2018-10-18] MEDS: FERROUS SULFATE 300MG/5ML UDC PO SCH (10:09)
[2018-10-18] MEDS: POTASSIUM CHLORIDE 10MEQ TABLET SR PO SCH (10:09)
[2018-10-18] MEDS: FUROSEMIDE 40MG TABLET PO SCH (10:09)
[2018-10-18] MEDS: AMLODIPINE 5MG TABLET PO SCH (10:10)
[2018-10-18 11:03] VITALS: BP 109/47
== END 2018-10-18 11:04 | disposition home health service (06) | DRG 299 ==
LOC: ER 09:56 → 7WST 12:30 → ENRESERV 22:24
PROVIDERS: ADMIT Internal Medicine Geriatric Medicine; ATTEND Internal Medicine Geriatric Medicine
DX: I82.622 Acute embolism and thrombosis of deep veins of left upper extremity (principal); E43 Unspecified severe protein-calorie malnutrition; I50.31 Acute diastolic (congestive) heart failure; R18.8 Other ascites; I69.351 Hemiplegia and hemiparesis following cerebral infarction affecting right dominant side; E83.51 Hypocalcemia; E86.0 Dehydration; D63.8 Anemia in other chronic diseases classified elsewhere; E78.5 Hyperlipidemia, unspecified; F01.50 Vascular dementia, unspecified severity, without behavioral disturbance, psychotic disturbance, mood disturbance, and anxiety; R31.9 Hematuria, unspecified; F32.9 Major depressive disorder, single episode, unspecified; K64.5 Perianal venous thrombosis; K64.9 Unspecified hemorrhoids; R58 Hemorrhage, not elsewhere classified; E83.42 Hypomagnesemia; I08.0 Rheumatic disorders of both mitral and aortic valves; I11.0 Hypertensive heart disease with heart failure; I80.8 Phlebitis and thrombophlebitis of other sites; K29.50 Unspecified chronic gastritis without bleeding; K74.60 Unspecified cirrhosis of liver; K56.41 Fecal impaction; S40.822A Blister (nonthermal) of left upper arm, initial encounter; X58.XXXA Exposure to other specified factors, initial encounter; K76.0 Fatty (change of) liver, not elsewhere classified; M41.9 Scoliosis, unspecified; Z79.01 Long term (current) use of anticoagulants; Z99.3 Dependence on wheelchair; Z79.82 Long term (current) use of aspirin; Z68.20 Body mass index [BMI] 20.0-20.9, adult; Y93.89 Activity, other specified; Y92.89 Other specified places as the place of occurrence of the external cause; Y99.8 Other external cause status
CPT/HCPCS: 36415; 71045; 71250; 76705; 80048; 82378; 82784; 83010; 83540; 83550; 83615; 83735; 84443; 84484; 86304; 86334; 93005; 93306; 93923; 93970; 93971; 94640; 96372; 97162; 99285; A6261; J0885; J1650; J1940; J3490; J7620